=== PATIENT | male | born 1940 | race Caucasian/White ===

== ENCOUNTER → 2023-11-27 13:12 | Outpatient (REF) | payer OTHER, SELFPAY | LOC: HWRAD 13:12 | PROVIDERS: ATTENDING PHYSICIAN Family Medicine | DX: J90 Pleural effusion, not elsewhere classified (principal) | CPT/HCPCS: 71046 ==

== ENCOUNTER → 2024-01-18 11:53 | Outpatient (REF) | payer OTHER, SELFPAY | LOC: HWRAD 11:53 | PROVIDERS: ATTENDING PHYSICIAN Family Medicine; FAMILY PHYSICIAN Family Medicine | DX: M79.89 Other specified soft tissue disorders (principal); M84.372A Stress fracture, left ankle, initial encounter for fracture | CPT/HCPCS: 73610; 73630 ==

== ENCOUNTER 2024-02-14 03:02 | Inpatient (IN) | payer OTHER, SELFPAY ==
[2024-02-13 18:36] VITALS: BMI 27.8
[2024-02-13 18:42] VITALS: BP 168/90
[2024-02-13 19:05] LABS: % Basophils 0.9 % (0-2); % Eosinophils 2.7 % (0-6); % Immature Granulocytes 0.4 % (0-0.5); % Lymphocytes 26.8 % (20.5-51.1); % Monocytes 12.6 % (1.7-9.3); % Neutrophils 56.6 % (42.2-75.2); Absolute Basophils 0.1 10^3/uL (0-0.2); Absolute Eosinophils 0.2 10^3/uL (0-0.7); Absolute Lymphocytes 1.9 10^3/uL (1.2-3.4); Absolute Monocytes 0.9 10^3/uL (0.1-0.6); Hematocrit 36.4 % (39.0-52.0); Hemoglobin 11.9 g/dL (13.0-18.0); Mean Corp Hgb Conc. 32.7 g/dL (33.0-37.0); Mean Corpuscular Hgb 28.2 pg (27.0-31.0); Mean Corpuscular Volume 86.3 fL (80.0-94.0); Mean Platelet Volume 10.1 fL (7.4-10.4); Nucleated Red Blood Cells % 0 % (-); Platelet Count 154 10^3/uL (130-400); Red Blood Cell Count 4.22 10^6/uL (4.70-6.10); Red Cell Dist. Width 14.4 % (11.5-14.5)
[2024-02-13 19:29] LABS: NT-proBNP 877 pg/ml; Troponin I 0.013 ng/ml
[2024-02-13 19:52] LABS: ALT (SGPT) 15 U/L (0-50); AST (SGOT) 34 U/L (17-59); Albumin 4.2 g/dl (3.5-5.0); Alkaline Phosphatase 108 U/L (38-126); Blood Urea Nitrogen 20 mg/dl (9-20); Calcium 9.6 mg/dl (8.4-10.2); Carbon Dioxide 30 mmol/L (22-30); Chloride 105 mmol/L (98-107); Glucose 111 mg/dl (70-99); Potassium 4.5 mmol/L (3.5-5.1); Sodium 142 mmol/L (135-145); Total Bilirubin 0.7 mg/dl (0.2-1.3); Total Protein 7.3 g/dl (6.3-8.2); eGFR > 60.00
[2024-02-13 22:33] VITALS: BP 137/82
[2024-02-13 23:05] LABS: Urine Albumin Trace (Neg - Trace); Urine Bilirubin Negative (Negative); Urine Character Clear (Clear); Urine Color Yellow; Urine Glucose Negative (Negative); Urine Ketone Negative (Negative); Urine Leukocyte Negative (Negative); Urine Nitrite Negative (Negative); Urine Occult Blood Negative (Negative); Urine Specific Gravity 1.015 (<1.030); Urine Urobilinogen Negative (Neg - 1+)
[2024-02-13 23:19] LABS: D-Dimer 3.04 ug/mlFEU (0.00-0.50)
--- NOTE | 2024-02-13 23:27 | ED.GENMED ---
History of Present Illness
General
Chief Complaint: Swelling
Source: patient
Exam Limitations: none
Time Seen by Provider: 02/13/24 22:21
Travel History
Have you had any contact with someone who has COVID-19?: No
Do you have any symptoms of coronavirus? Fever > 100 degrees, chills, cough, shortness of breath, sore throat, loss of taste or smell, muscle aches, or headache?: No
History of Present Illness
History of Present Illness:
This is a 83 year old male that comes in with c/o left lower leg swelling. State that he just had an US as they were concerned about a DVT. States that he also is SOB and he has urinary frequency and burning. Denies any fever, chills, chest pain,
abd pain, nausea, vomiting, diarrhea, headache, dizziness.
Past History
Past History
ED Past Medical History: Asthma, Cancer (Lymphoma, ), GERD, HTN, Hypercholesterolemia and Other (Manere's disease)
ED Past Surgical History: Other (Cataracts)
Social History
Tobacco: Former smoker
Alcohol: None
Personal:
Living: with family
Review of Systems
Review of Systems
All Other Systems: ROS reviewed and negative except as documented in HPI and ROS
Constitutional: Reports no symptoms; Denies fever or chills
EENT: Reports no symptoms
Respiratory: Reports cough and trouble breathing
Cardiac: Denies chest pain
ABD/GI: Reports no symptoms; Denies abdominal pain, nausea, vomiting or diarrhea
: Reports dysuria and frequency
Musculoskeletal: Reports edema (Bilateral lower legs)
Skin: Reports no symptoms
Neurological: Reports no symptoms; Denies dizzy or headache
Psychiatric: Reports no symptoms
Phy Exam
General Physical Exam
General Presentation: no apparent distress
General age: appears stated age
General Skin: warm and dry
General Habitus: elderly
General Mental: alert
General Hydration: appears well hydrated
ENT Exam
ENT Exam: TM's normal, pharynx normal and neck supple
Eye Exam
Eye Exam: EOMI
Cardiovascular Exam
Cardiovascular Exam: regular rate/rhythm and normal peripheral pulses
Pulmonary Exam
Pulmonary Exam: no respiratory distress, no rales, chest non tender, no crackles, no rhonchi, no wheezing, no cough and decreased breath sounds (Decreased breath sounds right base)
Gastrointestinal Exam
Gastrointestinal Exam: normal bowel sounds, non tender, soft, no organomegaly, no pulsatile mass and non distended
Musculoskeletal Exam
Musculoskeletal Exam: full ROM and edema (Bilateral lower leg edema L>R +2 pitting)
Skin Exam
Skin Exam: normal color, warm/dry, no rash and no petechia
Psychiatric Exam
Psychiatric Exam: normal mood/affect
Scores
Heart Failure Risk
Heart Failure Risk Score: Not Applicable
Course
Orders/Labs/Results
Orders:
Orders
02/13/24 18:51
Electrocardiogram (*1) Urgent
Reason for Study: Shortness of Breath
EKG- Treatment ONCE
US Legs, Left [US Periph Venous LOWER Ext LT] Urgent
Comment:
Reason For Exam: swelling and pain
02/13/24 19:00
Complete Blood Count/With Diff Urgent
Comprehensive Metabolic Panel Urgent
NT-proBNP Urgent
Troponin I Urgent
02/13/24 22:58
D-Dimer Urgent
Urinalysis Reflex To Culture Urgent
Date Specimen was Collected: 02/13/24
Time Specimen was Collected: 22:57
02/14/24 00:15
CT Chest Pe Study Urgent
Reason For Exam: SOB, elevated d-dimer
Abnormal Lab Results
02/13/24 02/13/24
19:00 22:58
RBC 4.22 L 10^6/uL
(4.70-6.10)
Hgb 11.9 L g/dL
(13.0-18.0)
Hct 36.4 L %
(39.0-52.0)
MCHC 32.7 L g/dL
(33.0-37.0)
Absolute Monos (auto) 0.9 H 10^3/uL
(0.1-0.6)
Monocytes % 12.6 H %
(1.7-9.3)
D-Dimer 3.04 H ug/mlFEU
(0.00-0.50)
Glucose 111 H mg/dl
(70-99)
02/13/24 19:00
02/13/24 19:00
H/H slightly low. Glucose nonfasting. Troponin 0.013, Pro-BNP 877, Urine negative for infection. D-dimer 3.04
Vital Signs
Initial and Last Documented VS:
Initial Vital Signs
Pulse Resp BP Pulse Ox
78 20 168/90 93
02/13/24 18:42 02/13/24 18:42 02/13/24 18:42 02/13/24 18:42
Last Documented Vital Signs
Temp Pulse Resp BP Pulse Ox
98.3 F 78 20 168/90 93
02/13/24 18:48 02/13/24 18:42 02/13/24 18:42 02/13/24 18:42 02/13/24 18:42
MDM/Problems Addressed
Differential Diagnosis Includes:
DVT, PE. Pleural effusion
MDM/Problems Addressed:
This is a 83 year old male that comes in with c/o leg swelling and SOB. States that he was concerned about a blood clot and that he has been SOB. States that he had a left pleural effusion in the past from his Lymphoma.
Will get labs US and CT of chest if needed.
Back into see patient. Explained that he has a large right sided pleural effusion. This is the cause of his SOB. Will admitd patient for further evaluation and treatment. Hospitalist notified.
Chronic conditions affecting care: Cancer
Acute Exacerbation and/or Progression of Chronic Illness: Cancer
*Radiology
Radiology exam reviewed: radiology read reviewed (US-NO evidence of deep venous thrombosis in the left lower extremity. CT chest-Adequate technical study. No acute pulmonary embolism No thoracic aortic aneurysm or acute aortic dissection. Large
right pleural effusion. Bibasilar atelectasis. Incidentals: Calcified coronary atherosclerosis. No ), all reviewed NAD by ED Provider (CT cont- NO acute osseous abnormality. Nonspecific stranding and soft tissues along the greater curvature of the
stomach, not well-characterized. Consider further characterization with dedicated CT abdomen/pelvis for further characterization. Prominent subcarinal lymphadenopathy measuring up to ) and other (CT cont0 3.9X 2.8cm. Recommend further workup for
possible underlying malignancy. Additional periaortic lymphadenopathy near the diaphragmatic vadim. )
*Pulse Oximetry
Patient hypoxic: no
*EKG
Interpreted by ED Provider?: Yes
Heart Rate: 78
Rate: normal
Rhythm: sinus
[place]: left axis deviation
Interval: normal interval
QRS Pattern: normal QRS
Ischemia: no ischemia (Checked by Dr. Dietrich)
*Is Analyst Interpretation
Rate: normal
Heart Rate: 85
Rhythm: sinus
*Critical Care Note
Total Time (30-74mins, 75-104mins- exclusive of procedures): Not Applicable
ED Attending Note
-
Portions of this chart may have been created with voice recognition software.� Occasional wrong word or��sound alike� substitutions may have occurred due to the inherent limitations of voice recognition software.
Discharge Plan
Departure
Patient Disposition: Admit
Date of Disposition: 02/14/24
Time of Disposition: 01:42
Admit to: Telemetry
Presentation/result/management discussed w/ accepting MD/DO: Hospitalist
Patient with high blood pressure during this ER visit?: Yes
Condition: Good
Covid-19: Not Applicable
Discharge Problem:
SOB (shortness of breath), Pleural effusion, right, Bilateral edema of lower extremity
Prescriptions:
No Action
ATENOLOL
50 mg PO BID
simvastatin 40 MG tablet
40 mg PO DAILY
ranitidine HCl [Heartburn Relief (ranitidine)] 150 MG tablet
150 mg PO BID
lisinopril 20 MG tablet
20 mg PO DAILY
doxazosin 2 MG tablet
2 mg PO DAILY
Referrals:
Mart Stauffer MD [Family Provider] -
Discharge Date and Time
Print Language: SAMOAN
[2024-02-13 23:49] VITALS: BP 162/67
[2024-02-14] VITALS (11 sets, daily range): BP systolic 80–174; BP diastolic 51–82; BMI 27.3
--- NOTE | 2024-02-14 01:32 | HPS.HSE ---
Family Physician
-
Family Physician: Mart Stauffer
Chief Complaint
-
Subacute shortness of breath and dyspnea on exertion
History of Present Illness
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 Patient also noted left lower extremity swelling for around the same time.
He denies to chest pain, cough, fever/chills, nausea/vomiting, abdominal pain, urinary symptoms etc.
In the ED, his CT chest noted large R pleural effusion.
Medical History
Past Medical History
Past Medical History: Reports Other
Additional Past Medical History:
GERD
HTN
HLD
distant history of lymphoma 15 years ago treated with chemo
Past Surgical History: Reports None
Social History
Tobacco: Non-smoker
Alcohol: None
Personal:
Living: With Family
Family History
Family History: Not pertinent
Allergies / Home Medications
Allergies reflects when Allergies were last updated in [facility].
Home Medications with original date entered in [facility]
Allergy/Medication List:
Medications on admission are unable to be verified or confirmed at this time.
Review of Systems
-
Respiratory: Reports See HPI and Trouble Breathing
Cardiac: Denies Chest Pain
Musculoskeletal: Reports Edema (Left leg swelling, mild)
Physical Exam
Vital Signs
Vital Signs
Temp Pulse Resp BP Pulse Ox
36.8 C 78 20 168/90 93
02/13/24 18:48 02/13/24 18:42 02/13/24 18:42 02/13/24 18:42 02/13/24 18:42
Physical Exam
General: Well Developed, Well Nourished, No Apparent Distress, Comfortable and Conversant (Speaking full sentences)
HEENT: NormoCephalic, Moist mucous membranes and Atraumatic
Respiratory: Clear, Non Labored Respirations and Decreased Breath Sounds (Right lower base); No Accessory Resp Muscle Use
Cardiac: S1/S2 and Regular Rhythm; No Murmur or Rub
GI: Soft, Non Tender, Non Distended and Normal Bowel Sounds; No Organomegaly
Rectal: Deferred by Provider
Musculoskeletal: No Clubbing, No Cyanosis, Edema, Left Lower Extremity (Mild) and No Edema
Skin: No Rash
Neuro: Awake, AO x 3 and Nonfocal/grossly intact
Psych: Calm and Intact Judgment/Insight
Laboratory Results
-
02/13/24 19:00
02/13/24 19:00
Laboratory Results
Total Bilirubin 0.7 mg/dl (0.2-1.3) 02/13/24 19:00
AST 34 U/L (17-59) 02/13/24 19:00
ALT 15 U/L (0-50) 02/13/24 19:00
Alkaline Phosphatase 108 U/L (38-126) 02/13/24 19:00
Troponin I 0.013 ng/ml 02/13/24 19:00
Data Reviewed
-
Diagnostic Radiology: Image Personally Visualized and interpreted
Lab Data: Labs Reviewed by me
Impression/Plan
-
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 Patient also noted left lower extremity swelling for around the same time.
He denies to chest pain, cough, fever/chills, nausea/vomiting, abdominal pain, urinary symptoms etc.
In the ED, his CT chest noted large R pleural effusion.
A/P:
# SOB/PETERS with R pleural effusion
# Left leg swelling
# Admit for likely acute new onset CHF, unknown type
Follow CT chest formal report
Left lower extremity ultrasound negative for DVT
IR CS for thoracentesis, follow pleural fluid lab results
Check echocardiogram
Consider cardiology consult after echo report
# GERD
# HTN
# HLD
# distant history of lymphoma 15 years ago treated with chemo
DVT ppx: lovenox SQ
FC
[2024-02-14 05:39] LABS: Hematocrit 34.9 % (39.0-52.0); Hemoglobin 10.9 g/dL (13.0-18.0); Mean Corp Hgb Conc. 31.2 g/dL (33.0-37.0); Mean Corpuscular Hgb 28.1 pg (27.0-31.0); Mean Corpuscular Volume 89.9 fL (80.0-94.0); Mean Platelet Volume 10.9 fL (7.4-10.4); Platelet Count 143 10^3/uL (130-400); Red Blood Cell Count 3.88 10^6/uL (4.70-6.10); Red Cell Dist. Width 14.2 % (11.5-14.5); White Blood Cell Count 6.1 10^3/uL (4.8-10.8)
[2024-02-14 06:14] LABS: Blood Urea Nitrogen 19 mg/dl (9-20); Calcium 9.1 mg/dl (8.4-10.2); Carbon Dioxide 28 mmol/L (22-30); Chloride 107 mmol/L (98-107); Estimated Creatinine Clearance 54 ml/min; Glucose 96 mg/dl (70-99); Magnesium 1.9 mg/dl (1.6-2.3); Potassium 4.5 mmol/L (3.5-5.1); Sodium 143 mmol/L (135-145); eGFR > 60.00
[2024-02-14 06:16] LABS: LDH 345 U/L (120-246); Total Protein 6.3 g/dl (6.3-8.2)
--- NOTE | 2024-02-14 08:14 | W.PN.HOSP.TC ---
Today's Communication/Plan
-
Await pleural fluid studies including cytology
Pulmonary and hematology oncology consultation
CAT scan of the abdomen and pelvis with contrast
Rule out recurrence of lymphoma
Also check echo
Assessment / Plan
Assessment / Plan
83-year-old male with shortness of breath and dyspnea on exertion for the past 2 weeks. Patient is usually active and goes to the gym every day. He has been finding it more difficult to walk uphill and also stairs. No chest pain no weight loss no
night sweats or fever.
On examination patient just got his fluid drained
Feels good
Cardiovascular system S1-S2 appreciated, short systolic murmur at apex
Chest decreased breath sounds at right base
Abdomen soft and nontender
Left lower extremity edema
Venous Doppler left lower extremity no evidence of DVT
CT of the chest-no PE. Markedly enlarged mediastinal and upper abdominal lymph nodes concerning for malignancy metastatic disease or recurrent lymphoma. Large right pleural effusion. Right lower lobe airspace disease consistent with pneumonia.
Collateral vessels on the right incomplete visualization however suspect narrowing of the right subclavian vein. Stranding along the greater curvature of the stomach is nonspecific
#Shortness of breath/dyspnea on exertion and right pleural effusion
Also has left lower extremity edema
Status post thoracentesis by IR with 800 mL of eulalia-colored fluid
Pleural fluid studies including cytology
Check echo
Pulmonary consultation
Will also request hematology oncology evaluation
I do not suspect pneumonia this is likely atelectasis secondary to pleural effusion. Hold off on antibiotics unless pulmonary feels needed
Add IS
# Left lower extremity edema-check CAT scan of the abdomen and pelvis
# History of left pleural effusion 2010 with drainage
It was during that time that patient was diagnosed with lymphoma
Completed chemo treatment with Dr. Euceda
Will consult
CT A/P
# Anemia- NOS
# History of paroxysmal atrial fibrillation-does not seem to be on anticoagulation at present. On atenolol
Pt says happened in 2010 only.
# Hypertension-on lisinopril, doxazosin, atenolol
# Hyperlipidemia-continue statin
# GERD-famotidine
# Ex smoker
# DVT prophylaxis-Lovenox
# Full code
D/W Pulm
D/W IR RN
Time spent 51 min
Anticipated Discharge: 24 - 48 hours
Subjective/Interval History
-
Date of Service: February 14, 2024
Objective Data
-
Labs:
Laboratory Results
02/14/24
05:14
WBC 6.1
Hgb 10.9 L
Hct 34.9 L
Plt Count 143
Sodium 143
Potassium 4.5
Chloride 107
Carbon Dioxide 28
BUN 19
Creatinine 1.0
Glucose 96
Calcium 9.1
Vital Signs:
Vital Signs
Temp Pulse Resp BP Pulse Ox
98.3 F 80 19 174/80 96
02/14/24 08:12 02/14/24 08:12 02/14/24 08:12 02/14/24 08:12 02/14/24 08:12
[2024-02-14 09:22] LABS: Body Fluid Mononuclear 97.8 %; Body Fluid Polymorphonuclear 2.2 %; Body Fluid WBC 3014 /CUMM
[2024-02-14 09:29] LABS: Body Fluid Second Tech AMA
[2024-02-14] MEDS: CARDURA 2 MG PO (09:36)
[2024-02-14] MEDS: PEPCID 20 MG PO (09:36)
[2024-02-14] MEDS: TENORMIN 50 MG PO ×2 (09:37→20:15)
[2024-02-14] MEDS: ZESTRIL 20 MG PO (09:37)
[2024-02-14 10:12] LABS: Body Fluid LDH 184 U/L; Body Fluid Protein 4.3 g/dl
[2024-02-14 10:38] LABS: Iron 62 ug/dl (49-181)
[2024-02-14 10:47] LABS: Percent Saturation 24 % (20-50); Total Iron Binding Capacity 250 ug/dl (261-462)
--- NOTE | 2024-02-14 11:31 | CON.PUL ---
Consultation
Consultation Request
Date/Time Consultation Requested: 02/14/2024946
Date/Time Consultation Performed: 02/14/2024 - 1049
Requesting Provider: Dr. Almazan
Performing Provider: Dr. Reyes
Reason for Consultation: Pleural effusion
Medical History
-
Chief Complaint: SOB
History of Present Illness:
83-year-old male former tobacco smoker (quit approximately 50 years ago) with a past medical history of NHL s/p chemotherapy (2010), history of A-fib, GERD, and hypertension who presents with worsening SOB x 2 days with intermittent lower extremity
edema x 1 month thats been worsening x last 2 weeks. Patient was afebrile in the ER to 98.3 �F, BP 168/90, saturating 93% on room air, breathing at 20 breaths/min with pulse rate 78 bpm. Labs showed mild anemia with Hb 11.9, negative troponin X1
at 0.013, elevated proBNP at 877, UA was negative for UTI, and D-dimer was elevated at 3040. Lower extremity ultrasound showed no evidence of DVT in the left leg. CTA chest was obtained which was negative for any acute PE, with large right-sided
pleural effusion and enlarged mediastinal lymph nodes. RLL air bronchograms are suspicious for a pneumonia. Patient underwent right-sided thoracentesis yielding 800 cc of clear eulalia-colored fluid, which was mononuclear predominant and exudative.
Patient admitted to the hospitalist service, and now pulmonary consulted for additional recommendations.
When I saw the patient he was there with his as well as daughter, and he felt much better since the thoracentesis. He is on room air breathing comfortably. He has a history of runny nose with clear nasal discharge happening for many months,
and he has not been treated with antibiotics and he has tried Azelastine in the past. He currently denies chest pain, headache, abdominal pain, abdominal swelling, fevers or chills. He does say that his legs are swollen, with his left moreso than
his right.
PMHx: Non-Hodgkin's lymphoma s/p chemotherapy (2010), reflux esophagitis,, hypertension, hyperlipidemia, BPH with LUTS, A-fib (episode during chemo)
PSHx: Cataract surgery (both eyes)
Past Medical History
Past Medical History: Other (Above as per HPI)
Past Surgical History: Other (Above as per HPI)
Social History
Tobacco: Former Smoker (Smoked 0.5-1 PPD X 10 years - quit about 50 years ago)
Alcohol: None
Drug: None
Employment: Retired ([employer])
Occupational Exposures: Previous work in [employer] where he was exposed to fumes
Family History
Family History: Cancer (Mother: breast cancer + colon cancer) and Other (Father: AAA; maternal grandfather: Asthma)
Allergies / Home Medications
Allergies
Allergy/AdvReac Type Severity Reaction Status Date / Time
No Known Allergies Allergy Verified 02/13/24 18:41
Home Medications
�Medication �Instructions �Recorded �Confirmed �Last Taken �Type
atenolol 50 mg tablet 50 mg PO BID 11/03/10 02/14/24 02/13/24 History
simvastatin 40 mg tablet 40 mg PO DAILY 11/03/10 02/14/24 02/13/24 History
doxazosin 2 mg tablet 2 mg PO DAILY 05/17/16 02/14/24 02/13/24 History
lisinopril 20 mg tablet 20 mg PO DAILY 05/17/16 02/14/24 02/13/24 History
famotidine 20 mg tablet (Pepcid) 20 mg PO BID 02/14/24 02/14/24 02/13/24 History
Review of Systems
-
History Source: Patient
All other systems: Negative unless noted (12 point ROS performed and is negative unless mentioned above.)
Vitals / Labs / Diagnostic Testing
Vital Signs
Temp Pulse Resp BP Pulse Ox
98.3 F 80 16 148/82 96
02/14/24 08:12 02/14/24 08:45 02/14/24 08:45 02/14/24 08:45 02/14/24 09:56
Lab Data
02/14/24 05:14
02/14/24 05:14
Microbiology
02/14/24 08:31 Pleural Fluid Gram Stain - Preliminary
Diagnostic Testing:
Physical Exam
-
HEENT: Normocephalic and Anicteric
Cardiovascular: S1/S2 and Peripheral Edema (+1 LLE, none on RLE)
Respiratory: Clear, Wheeze (negative), Rales (negative), Rhonchi (negative) and Non-Labored Respirations
GI: Soft, Non Distended, Non Tender and Normal Bowel Sounds
Neurology: AO x 3
Skin: Warm and Dry
General: Comfortable and Chills (negative)
Assessment
-
Assessment: 83-year-old male former tobacco smoker (quit approximately 50 years ago) with a past medical history of NHL s/p chemotherapy (2010), history of A-fib, GERD, and hypertension who presents with worsening SOB x 2 days with intermittent
lower extremity edema x 1 month thats been worsening x last 2 weeks. Patient was afebrile in the ER to 98.3 �F, BP 168/90, saturating 93% on room air, breathing at 20 breaths/min with pulse rate 78 bpm. Labs showed mild anemia with Hb 11.9,
negative troponin X1 at 0.013, elevated proBNP at 877, UA was negative for UTI, and D-dimer was elevated at 3040. Lower extremity ultrasound showed no evidence of DVT in the left leg. CTA chest was obtained which was negative for any acute PE,
with large right-sided pleural effusion and enlarged mediastinal lymph nodes. RLL air bronchograms are suspicious for a pneumonia. Patient underwent right-sided thoracentesis yielding 800 cc of clear eulalia-colored fluid, which was mononuclear
predominant and exudative. Patient admitted to the hospitalist service, and now pulmonary consulted for additional recommendations.
Chronic conditions [employer]: Non-Hodgkin's lymphoma s/p chemotherapy (2010), reflux esophagitis, hypertension, hyperlipidemia, BPH with LUTS, A-fib (episode during chemo)
Impression:
#Large right-sided pleural effusion (exudative) s/p thoracentesis (via IR on 02/14/2024)
#Acute respiratory failure with hypoxia on supplemental oxygen --> now on room air s/p thoracentesis
#Mediastinal + retroperitoneal lymphadenopathy concerning for recurrent lymphoma
#History of non-Hodgkin's and Phoma s/p chemotherapy (2010)
#Chronic anemia (baseline Hb 11-12)
#GERD
#Chronic rhinitis with clear nasal discharge
Plan:
- Follow up pleural fluid cytology and cultures
- Maintain SpO2 >90-94% with supplemental O2 as needed
- Incentive spirometer encouraged
- prn nebulized bronchodilators
- Hold off on Abx as this appears to be a malignant pleural effusion and his R-lung does not show an obvious pneumonia following his thoracentesis
- Consult oncology --> recs appreciated and I discussed the case with them
- If pleural fluid cytology is negative and R-pleural effusion re-accumulates, then would try to repeat thoracentesis as yield on 2nd thora is greater and is less invasive than a thoracic procedure; however if pleural fluid cytology is negative then
we are available for EBUS-bronchoscopy for lymph node biopsy - he has enlarged subcarinal lymph node (station 7) and an enlarged upper mediastinal LN (station 2). There are also many other lymph nodes seen in the retroperitoneum surrounding the
splenic hilum and surrounding the IVC/aorta and extending into the pelvis along the iliac vessels bilaterally --> would consult IR to see if there is a lymph node in the abdomen that they could easily target and obtain a core needle vs excisional
biopsy as this would be less invasive and time consuming than an EBUS-bronchoscopy. Of note, IR had diagnosed this patient in 2010 with lymphoma via an intra-abdominal lymph node core needle biopsy
- Replete electrolytes with K>4, Mg>2
- Maintain euglycemia with goal BG >100 and <180
- DVT ppx
Pulmonary service will continue to follow along.
Total time spent today was 55 minutes for this encounter. Time includes reviewing laboratory test/imaging results, reviewing pertinent medical records, obtaining and reviewing medical history, performing an appropriate exam, ordering medications,
tests and procedures. Time also includes documentation of this encounter, coordinating patient care and communicating with other healthcare professionals. Total time does not include separately billed tests performed on this date of service.
Data:
CTA Chest 02-14-2024:
1. No CT evidence for pulmonary embolism. No aortic dissection.
2. Markedly enlarged mediastinal and upper abdominal lymph nodes concerning for malignancy, metastatic disease or recurrent lymphoma.
3. Large right pleural effusion. Right lower lobe airspace disease most consistent with pneumonia.
4. Collateral vessels on the right, incomplete visualization, however suspect narrowing of the right subclavian vein centrally.
5. Stranding along the greater curve of the stomach is nonspecific. Contrast-enhanced CT of the abdomen and pelvis with IV and oral contrast is recommended for follow-up
CT Abd/Pelvis with IV Contrast 02-14-2024:
1. Splenomegaly. Markedly enlarged lymph nodes throughout the retroperitoneum, in the gastrohepatic ligament, carol hepatis, lower chest as previously described, and extending into the pelvis left greater than right, concerning for recurrent
lymphoma in a patient with previous treatment for lymphoma. Tissue diagnosis would be definitive.
2. Significant improvement in aeration of the lung bases compared to the chest CT scan earlier today. The patient is status post thoracentesis, with near complete resolution of the large right pleural effusion and with minimal residual airspace
disease status post reexpansion of the right lower lobe. No pneumothorax.
3. Incidental findings include diverticulosis, enlarged prostate gland, ganglion cyst along the musculotendinous junction of the iliopsoas muscle and a nonobstructing millimeter calcification in the right kidney.
[2024-02-14 11:41] LABS: Vitamin B12 366 pg/ml (239-931)
--- NOTE | 2024-02-14 12:07 | CON.ONC ---
Impression
Impression
right side pleural effusion
mediastinal / upper abdominal adenopathy
h/o DLBCL - tx RCHOP 2010 - Dr. Euceda
Plan
Plan
1. CT imaging w/ right pleural effusion/ mediastinal and upper abdominal adenopathy
-this constellation of radiographic findings is concerning for malignant process - possible recurrent NHL vs. other
-thoracentesis was performed today w/ cytology and flow cytometry pending
-if thoracentesis is non-diagnostic - consideration could be given to bronchoscoy w/ EBUS biopsy
-CT abd/ pelvis is pending to evaluate abdominal/pelvic involvement - possible lymph node more amenable to biopsy
Will continue to follow with you.
Patient History
History of Present Illness
83y/o male seen in consultation today regarding pleural effusion and adenopathy on CT imaging.
The patient has a h/o NHL - DLBCL- tx w/ 8 cycles of RCHOP under the care of Dr. Euceda, finishing in 2010. He was followed for 5 years w/ interval imaging w/ last PET/CT in 2016 [facility].
He presents to the [facility] w/ increased SOB. CT chest revealed no CT evidence for pulmonary embolism. Markedly enlarged mediastinal and upper abdominal lymph nodes concerning for malignancy, metastatic disease or recurrent lymphoma. Large
right pleural effusion. Right lower lobe airspace disease most consistent with pneumonia. Collateral vessels on the right, incomplete visualization, however suspect narrowing of the right subclavian vein centrally.
Thoracentesis was performed this am w/ 800cc taken off. Cytology is pending as well as flow cytometry.
Clinically, he is feeling better. He notes some baseline SOB. No cough, congestion, or chest pain. No self-palpated adenopathy. No fevers, chills, night sweats, or weight loss. No skin rash.
Past-Medical/Surgical History
PMH:
DLBCL - tx 2010 w/ 8 cycles - RCHOP - Dr. Euceda
hyperlipidemia
GERD
afib - episode during chemo
BPH
HTN
PSH:
US guided lymph node biopsy - 2010
bone marrow biopsy
SH:
patient is a former tobacco user - smoking 1ppd for about 10 years - quit 1970s
no significant ETOH
FH:
family history of colon cancer - mother
Allergies: NKDA
Patient Medication
�Medication �Instructions �Recorded �Confirmed �Last Taken �Type
atenolol 50 mg tablet 50 mg PO BID 11/03/10 02/14/24 02/13/24 History
simvastatin 40 mg tablet 40 mg PO DAILY 11/03/10 02/14/24 02/13/24 History
doxazosin 2 mg tablet 2 mg PO DAILY 05/17/16 02/14/24 02/13/24 History
lisinopril 20 mg tablet 20 mg PO DAILY 05/17/16 02/14/24 02/13/24 History
famotidine 20 mg tablet (Pepcid) 20 mg PO BID 02/14/24 02/14/24 02/13/24 History
Active Medications
Generic Name Dose Route Start Last Admin
Trade Name Freq PRN Reason Stop Dose Admin
Acetaminophen 650 mg 02/14/24 04:00
Acetaminophen 325 Mg Tablet PO 03/13/24 03:59
Q4HPRN PRN
mild pain/MEADOWS/temp> 100.4F
Atenolol 50 mg 02/14/24 08:00 02/14/24 09:37
Atenolol 50 Mg Tablet PO 03/13/24 07:59 50 mg
BID ANGEL Administration
Atorvastatin Calcium 40 mg 02/14/24 08:00 02/14/24 09:37
Atorvastatin (Lipitor) 20 Mg Tablet PO 03/13/24 07:59 Not Given
DAILY ANGEL
Bisacodyl 10 mg 02/14/24 04:00
Bisacodyl 10 Mg Rectal Suppository RECTAL 03/13/24 03:59
N22GANQ PRN
constipation
Doxazosin Mesylate 2 mg 02/14/24 08:00 05/22/24 09:36
Doxazosin 2 Mg Tablet PO 03/13/24 07:59 2 mg
DAILY ANGEL Administration
Enoxaparin Sodium 40 mg 02/14/24 18:00
Enoxaparin Sodium 40 Mg/0.4 Ml Syringe SC 03/13/24 17:59
QPM ANGEL
Famotidine 20 mg 02/14/24 08:00 02/14/24 09:36
Famotidine 20 Mg Tablet PO 03/13/24 07:59 20 mg
DAILY ANGEL Administration
Lisinopril 20 mg 02/14/24 08:00 02/14/24 09:37
Lisinopril 20 Mg Tablet PO 03/13/24 07:59 20 mg
DAILY ANGEL Administration
Polyethylene Glycol 17 grams 02/14/24 04:00
Polyethylene Glycol Powder 17 Grams Packet PO 03/13/24 03:59
DAILYPRN PRN
constipation
Senna/Docusate Sodium 1 tablet 02/14/24 04:00
Docusate W/Senna (Rupa-Colace) Tablet PO 03/13/24 03:59
BIDPRN PRN
constipation
Sodium Chloride 0 flush 02/14/24 05:00
Sodium Chloride 0.9% (Flush) Syringe IV 03/13/24 04:59
PER PROTOCOL ANGEL
Review of Systems
-
A ROS was performed w/ pertinent findings as per HPI.
Physical Exam
-
General: Well Developed, Well Nourished and No Apparent Distress
HEENT: Negative Jaundice
Cardiology: Normal Sinus Rhythm
Pulmonary: Other (decreased right base)
GI: Soft; Negative Spleenomegaly
Extremities: Edema
Neurology: Non Focal
Labs
Lab Results
WBC 6.1 10^3/uL (4.8-10.8) 02/14/24 05:14
RBC 3.88 10^6/uL (4.70-6.10) L 02/14/24 05:14
Hgb 10.9 g/dL (13.0-18.0) L 02/14/24 05:14
Hct 34.9 % (39.0-52.0) L 02/14/24 05:14
MCV 89.9 fL (80.0-94.0) 02/14/24 05:14
MCH 28.1 pg (27.0-31.0) 02/14/24 05:14
MCHC 31.2 g/dL (33.0-37.0) L 02/14/24 05:14
RDW 14.2 % (11.5-14.5) 02/14/24 05:14
Plt Count 143 10^3/uL (130-400) 02/14/24 05:14
MPV 10.9 fL (7.4-10.4) H 02/14/24 05:14
Abs Immat Gran (auto) 0.0 10^3/uL (0-0.05) 02/13/24 19:00
Absolute Neuts (auto) 4.0 10^3/uL (1.4-6.5) 02/13/24 19:00
Absolute Lymphs (auto) 1.9 10^3/uL (1.2-3.4) 02/13/24 19:00
Absolute Monos (auto) 0.9 10^3/uL (0.1-0.6) H 02/13/24 19:00
Absolute Eos (auto) 0.2 10^3/uL (0-0.7) 02/13/24 19:00
Absolute Basos (auto) 0.1 10^3/uL (0-0.2) 02/13/24 19:00
Immature Gran % 0.4 % (0-0.5) 02/13/24 19:00
Neutrophils % 56.6 % (42.2-75.2) 02/13/24 19:00
Lymphocytes % 26.8 % (20.5-51.1) 02/13/24 19:00
Monocytes % 12.6 % (1.7-9.3) H 02/13/24 19:00
Eosinophils % 2.7 % (0-6) 02/13/24 19:00
Basophils % 0.9 % (0-2) 02/13/24 19:00
Creatinine 1.0 mg/dL (0.7-1.3) 02/14/24 05:14
Vital Signs
Vital Signs
Temp Pulse Resp BP Pulse Ox
98.3 F 80 16 148/82 96
02/14/24 08:12 02/14/24 08:45 02/14/24 08:45 02/14/24 08:45 02/14/24 09:56
[2024-02-14] MEDS: OMNIPAQUE 50 ML PO (12:15)
[2024-02-14] MEDS: LOVENOX 40 MG SC (18:27)
[2024-02-15] VITALS (7 sets, daily range): BP systolic 72–169; BP diastolic 57–91
--- NOTE | 2024-02-15 09:09 | W.PN.ONC ---
Today's Communication / Plan
-
Cytology from thoracentesis pending
Will likely need large core biopsy of retroperitoneal lymph node
Status post right thoracentesis clinically improved
Follow-up [facility] office to coordinate care
Impression
Impression
Pleural effusion status
Mediastinal / upper abdominal adenopathy/splenomegaly
h/o DLBCL - tx RCHOP 2010
Subjective/Objective
Subjective/Objective
Vital Signs:
Vital Signs
Temp Pulse Resp BP Pulse Ox
97.9 F 75 20 139/71 94
02/15/24 07:30 02/15/24 07:30 02/15/24 07:30 02/15/24 07:30 02/15/24 07:30
Lab Results:
Laboratory Data
WBC 6.1 10^3/uL (4.8-10.8) 02/14/24 05:14
Hgb 10.9 g/dL (13.0-18.0) L 02/14/24 05:14
Plt Count 143 10^3/uL (130-400) 02/14/24 05:14
eGFR > 60.00 02/14/24 05:14
[2024-02-15] MEDS: CARDURA PO ×2 (09:19→09:27)
[2024-02-15] MEDS: TENORMIN PO ×2 (09:20→09:26)
[2024-02-15] MEDS: ZESTRIL PO ×2 (09:20→09:28)
[2024-02-15] MEDS: PEPCID PO ×2 (09:20→09:27)
--- NOTE | 2024-02-15 15:50 | W.PN.PUL3 ---
Today's Communication / Plan
-
Follow up pleural fluid cytology
Follow up IR retroperitoneal Bx (biopsied today - 02/15/2024)
Pt being prepared for discharge home. Pulmonary service will now sign off. Please re-consult if there are any additional questions or concerns.
Assessment
-
Assessment: 83-year-old male former tobacco smoker (quit approximately 50 years ago) with a past medical history of NHL s/p chemotherapy (2010), history of A-fib, GERD, and hypertension who presents with worsening SOB x 2 days with intermittent
lower extremity edema x 1 month thats been worsening x last 2 weeks. Patient was afebrile in the ER to 98.3 �F, BP 168/90, saturating 93% on room air, breathing at 20 breaths/min with pulse rate 78 bpm. Labs showed mild anemia with Hb 11.9,
negative troponin X1 at 0.013, elevated proBNP at 877, UA was negative for UTI, and D-dimer was elevated at 3040. Lower extremity ultrasound showed no evidence of DVT in the left leg. CTA chest was obtained which was negative for any acute PE,
with large right-sided pleural effusion and enlarged mediastinal lymph nodes. RLL air bronchograms are suspicious for a pneumonia. Patient underwent right-sided thoracentesis yielding 800 cc of clear eulalia-colored fluid, which was mononuclear
predominant and exudative. Patient admitted to the hospitalist service, and now pulmonary consulted for additional recommendations.
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
Impression:
#Large right-sided pleural effusion (exudative) s/p thoracentesis (via IR on 02/14/2024)
#Acute respiratory failure with hypoxia on supplemental oxygen --> now on room air s/p thoracentesis
#Mediastinal + retroperitoneal lymphadenopathy concerning for recurrent lymphoma
#History of non-Hodgkin's and Phoma s/p chemotherapy (2010)
#Chronic anemia (baseline Hb 11-12)
#GERD
#Chronic rhinitis with clear nasal discharge
Plan:
- Patient underwent IR CT-Guided left retroperitoneal am mass biopsy today --> follow up pathology
- Follow up pleural fluid cytology and cultures
- Maintain SpO2 >90-94% with supplemental O2 as needed
- Incentive spirometer encouraged
- prn nebulized bronchodilators
- Hold off on Abx as this appears to be a malignant pleural effusion and his R-lung does not show an obvious pneumonia following his thoracentesis
- Oncology consulted - I discussed case today with Dr. Euceda - IR biopsy obtained (as above), and outpatient follow up with oncology to coordinate care.
- As stated previously, our service is available for EBUS-bronchoscopy for lymph node biopsy - he has enlarged subcarinal lymph node (station 7) and an enlarged upper mediastinal LN (station 2). There are also many other lymph nodes seen in the
retroperitoneum surrounding the splenic hilum and surrounding the IVC/aorta and extending into the pelvis along the iliac vessels bilaterally --> he underwent IR CT-guided biopsy today. Follow up pathology.
- Of note, IR had diagnosed this patient in 2010 with lymphoma via an intra-abdominal lymph node core needle biopsy
- Replete electrolytes with K>4, Mg>2
- Maintain euglycemia with goal BG >100 and <180
- DVT ppx
Pt being prepared for discharge home. Pulmonary service will now sign off. Thank you for allowing us to be involved in the care of this patient - please re-consult if there are any additional questions or concerns. I gave our office information
to the patient and his in case he becomes SOB again, I want him to see us [facility] so we could arrange for thoracentesis, if needed depending on chest imaging (CXR vs US).
Total time spent today was 25 minutes for this encounter. Time includes reviewing laboratory test/imaging results, reviewing pertinent medical records, obtaining and reviewing medical history, performing an appropriate exam, ordering medications,
tests and procedures. Time also includes documentation of this encounter, coordinating patient care and communicating with other healthcare professionals. Total time does not include separately billed tests performed on this date of service.
Data:
CTA Chest 02-14-2024:
1. No CT evidence for pulmonary embolism. No aortic dissection.
2. Markedly enlarged mediastinal and upper abdominal lymph nodes concerning for malignancy, metastatic disease or recurrent lymphoma.
3. Large right pleural effusion. Right lower lobe airspace disease most consistent with pneumonia.
4. Collateral vessels on the right, incomplete visualization, however suspect narrowing of the right subclavian vein centrally.
5. Stranding along the greater curve of the stomach is nonspecific. Contrast-enhanced CT of the abdomen and pelvis with IV and oral contrast is recommended for follow-up
CT Abd/Pelvis with IV Contrast 02-14-2024:
1. Splenomegaly. Markedly enlarged lymph nodes throughout the retroperitoneum, in the gastrohepatic ligament, carol hepatis, lower chest as previously described, and extending into the pelvis left greater than right, concerning for recurrent
lymphoma in a patient with previous treatment for lymphoma. Tissue diagnosis would be definitive.
2. Significant improvement in aeration of the lung bases compared to the chest CT scan earlier today. The patient is status post thoracentesis, with near complete resolution of the large right pleural effusion and with minimal residual airspace
disease status post reexpansion of the right lower lobe. No pneumothorax.
3. Incidental findings include diverticulosis, enlarged prostate gland, ganglion cyst along the musculotendinous junction of the iliopsoas muscle and a nonobstructing millimeter calcification in the right kidney.
Subjective Data
-
Date of Service:
Date of Service: February 15, 2024
Chief Complaint: Pulmonary Follow Up
Subjective:
Pt seen this AM - he is doing well. He underwent IR lymph node biopsy today. He tolerated it well. No SOB. No O2 use. He is awaiting DC home. Denies chest pain, MEADOWS, abd pain, N/V/f/c.
Review of Systems
General: Other (negative unless mentioned )
Objective Data
Data Reviewed
Vital Signs / I&O / Oxygen:
Vital Signs
Temp Pulse Resp BP Pulse Ox
98.0 F 73 18 141/59 96
02/15/24 17:15 02/15/24 17:15 02/15/24 17:15 02/15/24 17:15 02/15/24 17:15
Intake and Output
02/14/24 02/15/24 02/16/24
06:59 06:59 06:59
Intake Total 480 / 480 560 / 560
Balance 480 / 480 560 / 560
SaO2 96
Nasal Cannula flow liters per 2
minute
Physical Exam
General: Respiratory Distress (negative) and Comfortable
HEENT: Normocephalic and Anicteric
Cardiovascular: S1-S2 and Peripheral Edema (negative)
Respiratory: Wheeze (negative), Crackles (negative), Rhonchi (negative) and Non-Labored Respirations
GI: Soft, Non Distended, Non Tender and Normal Bowel Sounds
Neurology: Awake and Alert
Skin: Warm and Dry
Labs/Micro/Reports
Lab Data
02/14/24 05:14
02/14/24 05:14
Microbiology
02/14/24 08:31 Pleural Fluid Body Fluid Culture - Preliminary
No Growth After 18-24 Hours
02/14/24 08:31 Pleural Fluid Gram Stain - Preliminary
--- NOTE | 2024-02-15 16:02 | CM ---
global marketing manager reviewed patient's chart and met with patient and pain lives with his spouse patient is independent with adl's and ambulation, no dme, patient has a prescription plan and patient uses [facility].
PCP: Dr. Stauffer
Plan; Home with spouse when stable, no needs.
[2024-02-15] MEDS: LOVENOX 40 MG SC (17:11)
--- NOTE | 2024-02-15 17:28 | W.PN.HOSP.TC ---
Today's Communication/Plan
-
Discharge
Assessment / Plan
Assessment / Plan
83-year-old male with shortness of breath and dyspnea on exertion for the past 2 weeks. Patient is usually active and goes to the gym every day. He has been finding it more difficult to walk uphill and also stairs. No chest pain no weight loss no
night sweats or fever.
On examination patient feels great
Cardiovascular system S1-S2 appreciated, short systolic murmur at apex
Chest decreased breath sounds at right base, rales
Abdomen soft and nontender
Left lower extremity edema
Venous Doppler left lower extremity no evidence of DVT
CT of the chest-no PE. Markedly enlarged mediastinal and upper abdominal lymph nodes concerning for malignancy metastatic disease or recurrent lymphoma. Large right pleural effusion. Right lower lobe airspace disease consistent with pneumonia.
Collateral vessels on the right incomplete visualization however suspect narrowing of the right subclavian vein. Stranding along the greater curvature of the stomach is nonspecific
ECHO-Normal left ventricular chamber size and systolic function. Normal regional
wall motion. Left ventricular ejection fraction is 59% by Guerra's method of
discs. Mild concentric left ventricular hypertrophy.
Normal right ventricular size and function.
Mild mitral regurgitation.
#Shortness of breath/dyspnea on exertion and right pleural effusion
Also has left lower extremity edema
Status post thoracentesis by IR with 800 mL of eulalia-colored fluid-Exudate
Pleural fluid studies including cytology-Pending
I do not suspect pneumonia this is likely atelectasis secondary to pleural effusion. Hold off on antibiotics unless pulmonary feels needed
Added IS
CT A/P noted.
Retroperitoneal LN Bx done today- Site looks stable.
Pt feels good.
# History of left pleural effusion 2010 with drainage
It was during that time that patient was diagnosed with lymphoma
Completed chemo treatment with Dr. Euceda
# Anemia- NOS.Replace low normal B12
# History of paroxysmal atrial fibrillation-does not seem to be on anticoagulation at present. On atenolol
Pt says happened in 2010 only.
# Hypertension-on lisinopril, doxazosin, atenolol
# Hyperlipidemia-continue statin
# GERD-famotidine
# Ex smoker
# DVT prophylaxis-Lovenox
# Full code
D/W Pulm
D/W IR
D/W Pulm all Ok for pt discharge
D/W RN
D/W
Pt aware to call heme if he doesn't hear from them
He is leaning towards chemo
ALl questions answered.
Total Discharge time 37 min
Anticipated Discharge: Today
Subjective/Interval History
-
Date of Service: February 15, 2024
Objective Data
-
Vital Signs:
Vital Signs
Temp Pulse Resp BP Pulse Ox
98.0 F 73 18 141/59 96
02/15/24 17:15 02/15/24 17:15 02/15/24 17:15 02/15/24 17:15 02/15/24 17:15
I&O
02/14/24 02/15/24 02/16/24
06:59 06:59 06:59
Intake Total 480 / 480
Balance 480 / 480
--- NOTE | 2024-02-15 17:32 | W.DS.TRANS ---
Addendum entered and electronically signed by Devonte Almazan MD 02/15/24 17:35:
Dictation- [id number]
Original Note:
DC Summary - Scientific Database Curator
-
Discharge Instructions:
Discharge Diagnosis/Procedures Pleural effusion, anemia, atrial fibrillation,
hypertension, high cholesterol, GERD, lymphoma
Diet As tolerated
Activity As tolerated
Driving Restrictions As prior to admission
Instructions:
Stand-Alone Forms:
Changes to Home Medications: Yes
Discharge Medications:
DC Medications w/original date entered in [facility]
atenolol 50 mg tablet 50 mg PO BID Blood Pressure 11/03/10
simvastatin 40 mg tablet 40 mg PO DAILY High Cholesterol 11/03/10
doxazosin 2 mg tablet 2 mg PO DAILY Blood Pressure 05/17/16
lisinopril 20 mg tablet 20 mg PO DAILY Blood Pressure 05/17/16
famotidine 20 mg tablet (Pepcid) 20 mg PO BID Gastrointestinal Issue 02/14/24
cyanocobalamin (vitamin B-12) 1,000 mcg tablet 1,000 mcg PO DAILY Supplement #0 tabs 02/15/24
Home Medication Changes
new
cyanocobalamin (vitamin B-12) 1,000 mcg tablet 1,000 mcg PO DAILY Supplement #0 tabs 02/15/24
Pending Results: Yes
Additional Pending Results:
Cytology and Pathology
== END 2024-02-15 19:04 | disposition home or self-care (01) | DRG 824 ==
LOC: 4 WEST ACU 03:02
PROVIDERS: Clinical Nurse Specialist Family Health; Emergency Medicine; Radiology Vascular & Interventional Radiology; ADMITTING PHYSICIAN Internal Medicine; ATTENDING PHYSICIAN Hospitalist; CONSULT PHYSICIAN Internal Medicine Critical Care Medicine; CONSULT PHYSICIAN Internal Medicine Hematology & Oncology; EMERGENCY PHYSICIAN Emergency Medicine; FAMILY PHYSICIAN Family Medicine
PROC: 0W993ZZ Drainage of Right Pleural Cavity, Percutaneous Approach (ICD-10-PCS; 2024-02-14)
PROC: 07BD3ZX Excision of Aortic Lymphatic, Percutaneous Approach, Diagnostic (ICD-10-PCS; 2024-02-15)
DX: C83.03 Small cell B-cell lymphoma, intra-abdominal lymph nodes (principal); J91.8 Pleural effusion in other conditions classified elsewhere; I11.0 Hypertensive heart disease with heart failure; I50.9 Heart failure, unspecified; R59.0 Localized enlarged lymph nodes; N40.1 Benign prostatic hyperplasia with lower urinary tract symptoms; D64.9 Anemia, unspecified; I48.0 Paroxysmal atrial fibrillation; E78.00 Pure hypercholesterolemia, unspecified; R16.1 Splenomegaly, not elsewhere classified; K21.00 Gastro-esophageal reflux disease with esophagitis, without bleeding; R09.02 Hypoxemia; J45.909 Unspecified asthma, uncomplicated; Z79.899 Other long term (current) drug therapy; Z87.891 Personal history of nicotine dependence; Z92.21 Personal history of antineoplastic chemotherapy
CPT/HCPCS: 88305; 32555; 49180; 71045; 71275; 74177; 77012; 80048; 80053; 81003; 82607; 82728; 83540; 83550; 83615; 83735; 83880; 83986; 84155; 84157; 84484; 85025; 85027; 85379; 87015; 87070; 87205; 88112; 88341; 88342; 88365; 89051; 93005; 93306; 93971; 99152; Q9967

== ENCOUNTER → 2024-02-22 12:13 | Outpatient (REF) | payer OTHER, SELFPAY ==
[2024-02-22 12:25] VITALS: BP 158/78; BP_SYST 71
[2024-02-22] MEDS: ANCEF 10 IV (13:05)
[2024-02-22 14:00] VITALS: BP 132/61; BP_SYST 73
[2024-02-22 14:15] VITALS: BP 139/62; BP_SYST 71
== END ==
LOC: RADI 12:13
PROVIDERS: ATTENDING PHYSICIAN Internal Medicine Hematology & Oncology
DX: C85.90 Non-Hodgkin lymphoma, unspecified, unspecified site (principal); D70.9 Neutropenia, unspecified
CPT/HCPCS: 36561; 76937; 77001; 99152; 99153; C1788

== ENCOUNTER → 2024-03-04 11:44 | Outpatient (REF) | payer OTHER, SELFPAY | LOC: PET 11:44 | PROVIDERS: ATTENDING PHYSICIAN Internal Medicine Hematology & Oncology | DX: C85.90 Non-Hodgkin lymphoma, unspecified, unspecified site (principal) | CPT/HCPCS: 78815; A9552 ==

== ENCOUNTER → 2024-04-17 13:49 | Outpatient (REF) | payer OTHER, SELFPAY ==
[2024-04-17 09:29] LABS: % Basophils 0.4 % (0-2); % Eosinophils 1.5 % (0-6); % Immature Granulocytes 0.2 % (0-0.5); % Monocytes 13.8 % (1.7-9.3); % Neutrophils 65.1 % (42.2-75.2); Absolute Eosinophils 0.1 10^3/uL (0-0.7); Absolute Lymphocytes 0.9 10^3/uL (1.2-3.4); Absolute Monocytes 0.6 10^3/uL (0.1-0.6); Hematocrit 31.4 % (39.0-52.0); Hemoglobin 10.4 g/dL (13.0-18.0); Mean Corp Hgb Conc. 33.1 g/dL (33.0-37.0); Mean Corpuscular Volume 87.5 fL (80.0-94.0); Mean Platelet Volume 9.6 fL (7.4-10.4); Platelet Count 166 10^3/uL (130-400); Red Blood Cell Count 3.59 10^6/uL (4.70-6.10); Red Cell Dist. Width 14.4 % (11.5-14.5); White Blood Cell Count 4.6 10^3/uL (4.8-10.8)
[2024-04-17 10:11] LABS: ALT (SGPT) 12 U/L (0-50); AST (SGOT) 22 U/L (17-59); Albumin 3.6 g/dl (3.5-5.0); Alkaline Phosphatase 98 U/L (38-126); Blood Urea Nitrogen 21 mg/dl (9-20); Carbon Dioxide 29 mmol/L (22-30); Chloride 106 mmol/L (98-107); Glucose 117 mg/dl (70-99); Potassium 4.5 mmol/L (3.5-5.1); Sodium 141 mmol/L (135-145); Total Bilirubin 0.6 mg/dl (0.2-1.3); eGFR > 60.00
== END ==
LOC: OIDL 13:49
PROVIDERS: ATTENDING PHYSICIAN Nurse Practitioner Adult Health
DX: D70.9 Neutropenia, unspecified (principal)
CPT/HCPCS: 80053; 85025

== ENCOUNTER → 2024-06-06 10:08 | Outpatient (REF) | payer OTHER, SELFPAY | LOC: PET 10:08 | PROVIDERS: ATTENDING PHYSICIAN Internal Medicine Hematology & Oncology | DX: C88.4 Extranodal marginal zone B-cell lymphoma of mucosa-associated lymphoid tissue [MALT-lymphoma] (principal) | CPT/HCPCS: 78815; A9552 ==

== ENCOUNTER → 2024-07-02 11:43 | Outpatient (REF) | payer OTHER, SELFPAY | LOC: HWRAD 11:43 | PROVIDERS: ATTENDING PHYSICIAN Nurse Practitioner Adult Health; FAMILY PHYSICIAN Family Medicine | DX: C85.90 Non-Hodgkin lymphoma, unspecified, unspecified site (principal); D70.9 Neutropenia, unspecified | CPT/HCPCS: 72050; 72072 ==

== ENCOUNTER → 2024-07-09 15:08 | Outpatient (REF) | payer OTHER, SELFPAY ==
[2024-07-09 15:25] LABS: % Basophils 0.4 % (0-2); % Immature Granulocytes 1.2 % (0-0.5); % Lymphocytes 42.3 % (20.5-51.1); % Monocytes 12.2 % (1.7-9.3); % Neutrophils 42.9 % (42.2-75.2); Absolute Eosinophils 0.1 10^3/uL (0-0.7); Absolute Immature Granulocytes 0.1 10^3/uL (0-0.05); Absolute Lymphocytes 2.1 10^3/uL (1.2-3.4); Absolute Monocytes 0.6 10^3/uL (0.1-0.6); Absolute Neutrophils 2.2 10^3/uL (1.4-6.5); Hematocrit 27.2 % (39.0-52.0); Hemoglobin 9.1 g/dL (13.0-18.0); Mean Corp Hgb Conc. 33.5 g/dL (33.0-37.0); Mean Corpuscular Hgb 31.5 pg (27.0-31.0); Mean Corpuscular Volume 94.1 fL (80.0-94.0); Platelet Count 87 10^3/uL (130-400); Red Blood Cell Count 2.89 10^6/uL (4.70-6.10); Red Cell Dist. Width 15.7 % (11.5-14.5)
[2024-07-09 17:02] LABS: ALT (SGPT) 23 U/L (0-50); AST (SGOT) 32 U/L (17-59); Albumin 3.4 g/dl (3.5-5.0); Alkaline Phosphatase 91 U/L (38-126); Blood Urea Nitrogen 17 mg/dl (9-20); Calcium 8.8 mg/dl (8.4-10.2); Carbon Dioxide 32 mmol/L (22-30); Chloride 104 mmol/L (98-107); Glucose 106 mg/dl (70-99); Potassium 4.4 mmol/L (3.5-5.1); Sodium 142 mmol/L (135-145); Total Bilirubin 0.6 mg/dl (0.2-1.3); Total Protein 5.4 g/dl (6.3-8.2); eGFR > 60.00
== END ==
LOC: OIDL 15:08
PROVIDERS: ATTENDING PHYSICIAN Nurse Practitioner Adult Health
DX: D70.9 Neutropenia, unspecified (principal); C85.90 Non-Hodgkin lymphoma, unspecified, unspecified site; C88.40 Extranodal marginal zone B-cell lymphoma of mucosa-associated lymphoid tissue [MALT-lymphoma] not having achieved remission
CPT/HCPCS: 80053; 85025

== ENCOUNTER → 2024-08-05 16:02 | Outpatient (REF) | payer OTHER, SELFPAY ==
[2024-08-05 15:59] LABS: ALT (SGPT) 16 U/L (0-50); AST (SGOT) 25 U/L (17-59); Albumin 3.6 g/dl (3.5-5.0); Alkaline Phosphatase 77 U/L (38-126); Blood Urea Nitrogen 17 mg/dl (9-20); Calcium 8.6 mg/dl (8.4-10.2); Carbon Dioxide 29 mmol/L (22-30); Chloride 105 mmol/L (98-107); Glucose 112 mg/dl (70-99); Potassium 4.3 mmol/L (3.5-5.1); Sodium 144 mmol/L (135-145); Total Bilirubin 0.5 mg/dl (0.2-1.3); Total Protein 5.7 g/dl (6.3-8.2); eGFR > 60.00
[2024-08-05 16:24] LABS: % Basophils 0.7 % (0-2); % Eosinophils 0.7 % (0-6); % Immature Granulocytes 3.3 % (0-0.5); % Monocytes 11.1 % (1.7-9.3); % Neutrophils 49.2 % (42.2-75.2); Absolute Immature Granulocytes 0.2 10^3/uL (0-0.05); Absolute Lymphocytes 2.1 10^3/uL (1.2-3.4); Absolute Monocytes 0.7 10^3/uL (0.1-0.6); Hematocrit 27.8 % (39.0-52.0); Hemoglobin 9.3 g/dL (13.0-18.0); Mean Corp Hgb Conc. 33.5 g/dL (33.0-37.0); Mean Corpuscular Hgb 31.6 pg (27.0-31.0); Mean Corpuscular Volume 94.6 fL (80.0-94.0); Nucleated Red Blood Cells % 0 % (-); Platelet Count 122 10^3/uL (130-400); Red Blood Cell Count 2.94 10^6/uL (4.70-6.10); Red Cell Dist. Width 15.9 % (11.5-14.5); White Blood Cell Count 6.1 10^3/uL (4.8-10.8)
== END ==
LOC: OIDL 16:02
PROVIDERS: ATTENDING PHYSICIAN Internal Medicine Hematology & Oncology
DX: D70.9 Neutropenia, unspecified (principal); C85.90 Non-Hodgkin lymphoma, unspecified, unspecified site
CPT/HCPCS: 80053; 85025

== ENCOUNTER → 2024-09-16 12:18 | Outpatient (REF) | payer OTHER, SELFPAY | LOC: PET 12:18 | PROVIDERS: ATTENDING PHYSICIAN Internal Medicine Hematology & Oncology | DX: C85.90 Non-Hodgkin lymphoma, unspecified, unspecified site (principal); C88.40 Extranodal marginal zone B-cell lymphoma of mucosa-associated lymphoid tissue [MALT-lymphoma] not having achieved remission | CPT/HCPCS: 78815; A9552 ==

== ENCOUNTER → 2024-10-02 14:18 | Outpatient (REF) | payer OTHER, SELFPAY | LOC: RCS 14:18 | PROVIDERS: ATTENDING PHYSICIAN Internal Medicine Hematology & Oncology | DX: D70.9 Neutropenia, unspecified (principal); C85.90 Non-Hodgkin lymphoma, unspecified, unspecified site; C88.40 Extranodal marginal zone B-cell lymphoma of mucosa-associated lymphoid tissue [MALT-lymphoma] not having achieved remission | CPT/HCPCS: 93005 ==

== ENCOUNTER → 2025-03-19 10:58 | Outpatient (REF) | payer OTHER, SELFPAY | LOC: PET 10:58 | PROVIDERS: ATTENDING PHYSICIAN Internal Medicine Hematology & Oncology | DX: C88.40 Extranodal marginal zone B-cell lymphoma of mucosa-associated lymphoid tissue [MALT-lymphoma] not having achieved remission (principal) | CPT/HCPCS: 78815; A9552 ==

== ENCOUNTER → 2025-05-06 15:23 | Outpatient (REF) | payer OTHER, SELFPAY | LOC: OIDL 15:23 | PROVIDERS: ATTENDING PHYSICIAN Nurse Practitioner Adult Health | DX: D70.9 Neutropenia, unspecified (principal); C85.90 Non-Hodgkin lymphoma, unspecified, unspecified site; C88.40 Extranodal marginal zone B-cell lymphoma of mucosa-associated lymphoid tissue [MALT-lymphoma] not having achieved remission | CPT/HCPCS: 83880 ==

== ENCOUNTER → 2025-05-09 14:54 | Outpatient (REF) | payer OTHER, SELFPAY | LOC: HWRAD 14:54 | PROVIDERS: ATTENDING PHYSICIAN Nurse Practitioner Adult Health; FAMILY PHYSICIAN Family Medicine; REFERRING PHYSICIAN Internal Medicine Hematology & Oncology | DX: D70.9 Neutropenia, unspecified (principal); C85.90 Non-Hodgkin lymphoma, unspecified, unspecified site; C88.40 Extranodal marginal zone B-cell lymphoma of mucosa-associated lymphoid tissue [MALT-lymphoma] not having achieved remission | CPT/HCPCS: 93970 ==

== ENCOUNTER → 2025-07-16 06:52 | Outpatient (REF) | payer OTHER, SELFPAY | LOC: REG 06:52 | PROVIDERS: ATTENDING PHYSICIAN Internal Medicine Hematology & Oncology | DX: D70.9 Neutropenia, unspecified (principal); C85.90 Non-Hodgkin lymphoma, unspecified, unspecified site; C88.41 Extranodal marginal zone B-cell lymphoma of mucosa-associated lymphoid tissue [MALT-lymphoma], in remission | CPT/HCPCS: 36415 ==

== ENCOUNTER → 2025-07-16 07:57 | Outpatient (REF) | payer OTHER, SELFPAY ==
[2025-07-16 10:14] LABS: Glucose 103 mg/dl (70-99)
== END ==
LOC: PET 07:57
PROVIDERS: Internal Medicine Hematology & Oncology; ATTENDING PHYSICIAN Nurse Practitioner Primary Care
DX: C88.40 Extranodal marginal zone B-cell lymphoma of mucosa-associated lymphoid tissue [MALT-lymphoma] not having achieved remission (principal); C85.90 Non-Hodgkin lymphoma, unspecified, unspecified site
CPT/HCPCS: 36415; 78815; 82947; A9552

== ENCOUNTER → 2025-08-25 13:23 | Outpatient (REF) | payer OTHER, SELFPAY | LOC: RAD 13:23 | PROVIDERS: ATTENDING PHYSICIAN Nurse Practitioner Adult Health | DX: D70.9 Neutropenia, unspecified (principal); C85.90 Non-Hodgkin lymphoma, unspecified, unspecified site; C88.40 Extranodal marginal zone B-cell lymphoma of mucosa-associated lymphoid tissue [MALT-lymphoma] not having achieved remission; C83.34 Diffuse large B-cell lymphoma, lymph nodes of axilla and upper limb | CPT/HCPCS: 71046 ==